=== PATIENT | female | born 1980 | race African-American/Black ===

== ENCOUNTER 2017-12-01 14:21 | Emergency (ER) | payer MEDICAID ==
[~2017-12-01] VITALS: Ht 162.6 cm; Wt 61.0 kg
[2017-12-01 14:40] VITALS: BP 124/67
== END 2017-12-01 16:36 | disposition home or self-care (01) ==
LOC: ER 15:00
DX: S16.1XXA Strain of muscle, fascia and tendon at neck level, initial encounter (principal); M79.659 Pain in unspecified thigh; V89.2XXA Person injured in unspecified motor-vehicle accident, traffic, initial encounter; Y93.89 Activity, other specified; Y92.89 Other specified places as the place of occurrence of the external cause; Y99.8 Other external cause status
CPT/HCPCS: 99283

== ENCOUNTER 2018-04-17 19:41 | Emergency (ER) | payer MEDICAID, OTHER ==
[~2018-04-17] VITALS: Ht 162.6 cm; Wt 63.0 kg
[2018-04-17] MEDS ORDERED: TRAMADOL 50MG TABLET PO ONE (21:15)
[2018-04-17 22:28] VITALS: BP 133/90
== END 2018-04-17 22:29 | disposition home or self-care (01) ==
LOC: ER 19:41
DX: S03.2XXA Dislocation of tooth, initial encounter (principal); K08.89 Other specified disorders of teeth and supporting structures; X58.XXXA Exposure to other specified factors, initial encounter; Y93.89 Activity, other specified; Y92.9 Unspecified place or not applicable
CPT/HCPCS: 99283

== ENCOUNTER 2018-11-19 11:13 | Emergency (ER) | payer OTHER ==
[~2018-11-19] VITALS: Ht 162.6 cm; Wt 61.0 kg
[2018-11-19 16:00] VITALS: BP 125/82
== END 2018-11-19 16:00 | disposition home or self-care (01) ==
LOC: ER 11:13
DX: R05 Cough (principal)
CPT/HCPCS: 99282